=== PATIENT | male | born 2005 | race Caucasian/White ===

== ENCOUNTER 2024-08-12 08:36 | Outpatient (REF) | payer BC, SELFPAY ==
--- NOTE | ~2024-08-12 | US_ITS ---
EXAMINATION: US THYROID CLINICAL INFORMATION: Palpable lump in the posterior aspect of the neck on physical exam. COMPARISON: None available. TECHNIQUE: Linear transducer clancy-scale and color Doppler examination with attention to the region of the soft tissues of the neck posterior. FINDINGS: Targeted sonographic evaluation of palpable lump in the posterior aspect of the left neck demonstrate no abnormal findings US/US soft tiss head and/or neck IMPRESSION: No abnormal findings seen. Electronically signed by: Benja Christensen MD 08/12/2024 04:07 PM EDT
== END 2024-08-12 08:37 | disposition home or self-care (01) ==
LOC: HO.UMASIMG 08:36
PROVIDERS: Visit Provider Family Medicine
DX: R22.1 Localized swelling, mass and lump, neck (principal)
CPT/HCPCS: 76536